=== PATIENT | male | born 1980 | race Caucasian/White ===

== ENCOUNTER 2016-12-21 16:20 | Emergency (ER) | payer SELFPAY ==
[~2016-12-21] VITALS: Ht 182.9 cm; Wt 79.3 kg
[2016-12-21] MEDS ORDERED: NORCO 5/3251 TABLET PO (18:09)
[2016-12-21 18:18] VITALS: BP 104/83
== END 2016-12-21 18:23 | disposition home or self-care (01) ==
LOC: EME 16:20
DX: S61.011A Laceration without foreign body of right thumb without damage to nail, initial encounter (principal); W26.0XXA Contact with knife, initial encounter; S60.032A Contusion of left middle finger without damage to nail, initial encounter; W20.8XXA Other cause of strike by thrown, projected or falling object, initial encounter; Z23 Encounter for immunization; G40.909 Epilepsy, unspecified, not intractable, without status epilepticus; F17.200 Nicotine dependence, unspecified, uncomplicated
CPT/HCPCS: 73140; 99281; 99284